=== PATIENT | female | born 1990 | race Caucasian/White ===

== ENCOUNTER 2017-07-10 11:15 | Emergency (ER) | payer MEDICAID ==
[~2017-07-10] VITALS: Ht 160 cm; Wt 54.5 kg
[~2017-07-10 11:15] MED LIST: ALPR-624 PO; DIPH-186 PO; HYDR-569 PO; NO HOME MEDS
[2017-07-10 12:06] LABS: BASOPHILS % (AUTO) 0.1 % (0-1); EOSINOPHILS % (AUTO) 0.1 % (0-6); HEMATOCRIT 46.3 % (35.0-45.0); LYMPHOCYTES # (AUTO) 1.9 X10'3 (1.1-4.8); LYMPHOCYTES % (AUTO) 21.2 % (21-51); MEAN CORPUSCULAR HEMOGLOBIN 26.9 PG (27.0-31.0); MEAN CORPUSCULAR HGB CONC 32.5 % (33.0-36.5); MEAN CORPUSCULAR VOLUME 82.9 FL (78-98); MONOCYTES # (AUTO) 0.7 X10'3 (0-0.9); MONOCYTES % (AUTO) 7.6 % (2-12); NEUTROPHILS # (AUTO) 6.2 X10'3 (1.8-7.7); PLATELET COUNT 347 X10'3 (140-440); RED BLOOD COUNT 5.59 X10'6 (4.20-5.60); WHITE BLOOD COUNT 8.8 X10'3 (4.5-11.0)
[2017-07-10 12:15] LABS: CLARITY,URINE CLOUDY (Clear); COLOR,URINE YELLOW (Yellow); GLUCOSE, URINE NEGATIVE (Neg); KETONES,URINE TRACE mg/dl (Neg); LEUKOCYTE ESTERASE ,URINE NEGATIVE (Neg); NITRITES, URINE NEGATIVE (Neg); OCCULT BLOOD,URINE NEGATIVE (Neg); PROTEIN,URINE 30 mg/dl (Neg); URINE HCG NEGATIVE (NEG)
[2017-07-10 12:17] LABS: UA COLLECTION TYPE CLN CATCH MIDSTREAM
[2017-07-10 12:20] LABS: MUCUS STRANDS MANY /LPF (Neg); SQUAMOUS EPITHELIAL CELL,UR MANY /LPF (FEW)
[2017-07-10 12:20] LABS: ALANINE AMINOTRANSFERASE 459 U/L (12-78); ALBUMIN 4.7 G/DL (3.4-5.0); ALKALINE PHOSPHATASE 184 IU/L (46-116); ANION GAP 11 (8-16); ASPARTATE AMINO TRANSFERASE 263 U/L (10-37); BILIRUBIN,TOTAL 1.1 MG/DL (0.1-1.0); BLOOD UREA NITROGEN 15 MG/DL (7-18); BUN/CREATININE RATIO 14.6 (6.6-38.0); CHLORIDE 102 MMOL/L (99-107); CREATININE 1.03 MG/DL (0.40-0.90); GLUCOSE 101 MG/DL (70-104); POTASSIUM 3.8 MMOL/L (3.5-5.1); SODIUM 141 MMOL/L (135-145); TOTAL CARBON DIOXIDE 27.9 MMOL/L (24-32); TOTAL PROTEIN 9.5 G/DL (6.4-8.2); eGFR 65 ML/MIN
[2017-07-10 12:21] LABS: BACTERIA,URINE 2+ /HPF (Neg); RBC,URINE 0-2 /HPF (0-2); WBC,URINE 0-4 /HPF (0-4)
[2017-07-10 12:26] LABS: URINE AMPHETAMINE SCREEN POSITIVE (Neg); URINE BARBITUATE SCREEN NEGATIVE (Neg); URINE BENZODIAZEPINES SCREEN NEGATIVE (Neg); URINE CANNABINOID SCREEN POSITIVE (Neg); URINE COCAINE SCREEN NEGATIVE (Neg); URINE METHADONE SCREEN NEGATIVE (Neg); URINE OPIATE SCREEN POSITIVE (Neg); URINE PHENCYCLIDINE SCREEN NEGATIVE (Neg)
[2017-07-10 12:31] LABS: ETHANOL < 0.010 GM/DL (0.0-0.010)
[2017-07-10 12:33] LABS: ACETAMINOPHEN < 2.0 UG/ML (10-30)
[2017-07-10] MEDS ORDERED: LORazepam 2 mg/ml vial IM ONE (14:35)
[2017-07-10] MEDS ORDERED: haloperidol lactate 5mg/ml inj IM ONE (14:35)
[2017-07-10] MEDS ORDERED: diphenhydrAMINE 50 mg/ml inj IM ONE (15:25)
[2017-07-12] MEDS ORDERED: hydrOXYzine 25 MG tablet PO ONE (06:40)
[2017-07-12 10:02] VITALS: BP 112/62
== END 2017-07-12 10:04 | disposition home or self-care (01) ==
LOC: ER 11:16
DX: F15.10 Other stimulant abuse, uncomplicated (principal); F29 Unspecified psychosis not due to a substance or known physiological condition; F11.10 Opioid abuse, uncomplicated; F41.9 Anxiety disorder, unspecified; R45.851 Suicidal ideations
CPT/HCPCS: 36415; 80053; 80305; 80320; 80329; 81001; 81025; 84443; 85025; 96372; 99284; J1200; J1630; J2060; Q0177

== ENCOUNTER 2017-09-05 18:23 | Emergency (ER) | payer MEDICAID ==
[~2017-09-05] VITALS: Ht 5200 cm; Wt 53.0 kg
[2017-09-05 19:05] LABS: URINE HCG NEGATIVE (NEG)
[2017-09-05 19:09] LABS: CLARITY,URINE Clear (Clear); COLOR,URINE Dark Yellow (Yellow); GLUCOSE, URINE Negative (Neg); KETONES,URINE Negative (Neg); LEUKOCYTE ESTERASE ,URINE Negative (Neg); NITRITES, URINE Negative (Neg); OCCULT BLOOD,URINE Negative (Neg); PH,URINE 5.5 (4.8-8.0); PROTEIN,URINE Trace mg/dl (Neg)
[2017-09-05 19:16] LABS: URINE AMPHETAMINE SCREEN POSITIVE (Neg); URINE BARBITUATE SCREEN NEGATIVE (Neg); URINE BENZODIAZEPINES SCREEN NEGATIVE (Neg); URINE CANNABINOID SCREEN POSITIVE (Neg); URINE COCAINE SCREEN NEGATIVE (Neg); URINE METHADONE SCREEN NEGATIVE (Neg); URINE OPIATE SCREEN POSITIVE (Neg); URINE PHENCYCLIDINE SCREEN NEGATIVE (Neg)
[2017-09-05] MEDS ORDERED: mupirocin 2% ointment 22GM TP STA (19:22)
[2017-09-05 19:25] LABS: UA COLLECTION TYPE CLN CATCH MIDSTREAM
[2017-09-05 19:32] LABS: BACTERIA,URINE FEW /HPF (Neg); MUCUS STRANDS FEW /LPF (Neg); RBC,URINE 0-2 /HPF (0-2); SQUAMOUS EPITHELIAL CELL,UR FEW /LPF (FEW); WBC,URINE 0-4 /HPF (0-4)
[2017-09-05 19:46] LABS: BASOPHILS % (AUTO) 0.2 % (0-1); EOSINOPHILS # (AUTO) 0.1 X10'3 (0-0.9); EOSINOPHILS % (AUTO) 0.7 % (0-6); HEMATOCRIT 36.7 % (35.0-45.0); HEMOGLOBIN 12.5 g/dl (12.0-16.0); LYMPHOCYTES # (AUTO) 2.8 X10'3 (1.1-4.8); LYMPHOCYTES % (AUTO) 35.8 % (21-51); MEAN CORPUSCULAR HEMOGLOBIN 27.9 PG (27.0-31.0); MEAN CORPUSCULAR HGB CONC 34.1 % (33.0-36.5); MEAN CORPUSCULAR VOLUME 81.6 FL (78-98); MEAN PLATELET VOLUME 7.8 FL (7.4-10.4); MONOCYTES # (AUTO) 0.7 X10'3 (0-0.9); MONOCYTES % (AUTO) 9.5 % (2-12); NEUTROPHILS # (AUTO) 4.3 X10'3 (1.8-7.7); NEUTROPHILS % (AUTO) 53.8 % (42-75); PLATELET COUNT 276 X10'3 (140-440); RED BLOOD COUNT 4.49 X10'6 (4.20-5.60); WHITE BLOOD COUNT 7.9 X10'3 (4.5-11.0)
[2017-09-05 20:12] LABS: ALANINE AMINOTRANSFERASE 186 U/L (12-78); ALBUMIN 3.5 G/DL (3.4-5.0); ALBUMIN/GLOBULIN RATIO 0.9 (1.1-1.5); ALKALINE PHOSPHATASE 94 IU/L (46-116); ANION GAP 6 (8-16); ASPARTATE AMINO TRANSFERASE 81 U/L (10-37); BILIRUBIN,TOTAL 0.3 MG/DL (0.1-1.0); BLOOD UREA NITROGEN 7 MG/DL (7-18); BUN/CREATININE RATIO 8.5 (6.6-38.0); CALCIUM 8.9 MG/DL (8.5-10.1); CHLORIDE 105 MMOL/L (99-107); CREATININE 0.82 MG/DL (0.40-0.90); ETHANOL < 0.010 GM/DL (0.0-0.010); GLUCOSE 100 MG/DL (70-104); POTASSIUM 3.9 MMOL/L (3.5-5.1); SODIUM 143 MMOL/L (135-145); TOTAL CARBON DIOXIDE 31.8 MMOL/L (24-32); TOTAL PROTEIN 7.6 G/DL (6.4-8.2); eGFR 85 ML/MIN
[2017-09-05] MEDS ORDERED: TETanus/Pertussis (Acell)/Diphther VAC/PF (Tdap-Adult) 0.5ml syringe IMVAC ONE (23:25)
[2017-09-06] MEDS ORDERED: HYDR-3686 PO (09:56)
[2017-09-06] MEDS ORDERED: GABA100C PO (09:56)
[2017-09-06] MEDS ORDERED: ZIPR20CA2 PO (09:56)
[2017-09-06] MEDS: gabapentin 100mg capsule PO SCH ×2 (13:00→21:58)
[2017-09-06] MEDS ORDERED: LORazepam 2 mg/ml vial ONE (13:11)
[2017-09-06] MEDS ORDERED: haloperidol lactate 5mg/ml inj IM ONE (13:11)
[2017-09-06] MEDS ORDERED: diphenhydrAMINE 50 mg/ml inj ONE (13:11)
[2017-09-06] MEDS ORDERED: ondansetron 4mg rapidly disintigrating tab PO ONE (16:50)
[2017-09-06] MEDS ORDERED: diphenhydrAMINE 25mg capsule PO ONE (16:50)
[2017-09-06] MEDS: ziprasidone 20mg capsule PO SCH (21:59)
[2017-09-06] MEDS: hydrOXYzine 25 MG tablet PO PRN (21:59)
[2017-09-07] MEDS: gabapentin 100mg capsule PO SCH ×3 (07:37→21:01)
[2017-09-07] MEDS: ziprasidone 20mg capsule PO SCH ×2 (07:37→21:01)
[2017-09-07] MEDS: hydrOXYzine 25 MG tablet PO PRN (21:01)
[2017-09-08] MEDS: ziprasidone 20mg capsule PO SCH (08:17)
[2017-09-08] MEDS: gabapentin 100mg capsule PO SCH (08:17)
[2017-09-08 11:25] VITALS: BP 97/64
== END 2017-09-08 09:50 ==
LOC: ER 18:25
DX: R45.851 Suicidal ideations (principal); L03.011 Cellulitis of right finger; F15.10 Other stimulant abuse, uncomplicated; F11.10 Opioid abuse, uncomplicated; F41.9 Anxiety disorder, unspecified; Z90.89 Acquired absence of other organs; Z98.890 Other specified postprocedural states; Z59.0 Homelessness
CPT/HCPCS: 36415; 80053; 80305; 80320; 81001; 81025; 84443; 85025; 90471; 96372; 99285; J1200; J1630; J2060; Q0163; Q0177

== ENCOUNTER 2018-07-22 19:14 | Emergency (ER) | payer MEDICAID ==
[~2018-07-22] VITALS: Ht 152.4 cm; Wt 54.5 kg
[~2018-07-22 19:14] MED LIST changes: -ALPR-624 PO; -DIPH-186 PO; +GABA100C PO; +HYDR-3686 PO; -HYDR-569 PO; -NO HOME MEDS; +ZIPR20CA2 PO
[2018-07-22] MEDS ORDERED: naloxone 0.4 mg/ml inj IV ONE (19:55)
[2018-07-22] MEDS: naloxone 2mg/2ml inj IH STA ×2 (19:59→20:07)
--- NOTE | 2018-07-22 20:37 | NUR ---
pt is up talking and refusing narcan. riley fried notified, no further orders at this time.
[2018-07-22 21:04] VITALS: BP 111/72
--- NOTE | 2018-07-22 21:43 | NUR ---
PT AWAKE AND STANDING AT SIDE OF THE GURNEY , ATTACHED TO THE MONITOR AND REQUESTING TO BE UNHOOKED TO GO TO BR. PT WITH STEADY SLOW GAIT TO BR.
[2018-07-22] MEDS ORDERED: NALO4SPR (22:08)
== END 2018-07-22 22:38 | disposition home or self-care (01) ==
LOC: ER 19:14
DX: F11.10 Opioid abuse, uncomplicated (principal); F15.90 Other stimulant use, unspecified, uncomplicated; Z90.89 Acquired absence of other organs; Z59.0 Homelessness; Z98.890 Other specified postprocedural states; Z79.899 Other long term (current) drug therapy
CPT/HCPCS: 99284; J2310

== ENCOUNTER 2018-12-20 10:41 | Emergency (ER) | payer MEDICAID ==
[~2018-12-20] VITALS: Ht 152.4 cm; Wt 53.0 kg
[~2018-12-20 10:41] MED LIST changes: +NALO4SPR
--- NOTE | 2018-12-20 11:13 | NUR ---
PA wants patient monitored for an undertermined amount of time due to patient taking heroin. Patient sitter will come from overflow to sit with her.
[2018-12-20 12:05] LABS: URINE HCG NEGATIVE (NEG)
[2018-12-20 12:17] LABS: URINE AMPHETAMINE SCREEN POSITIVE (Neg); URINE BARBITUATE SCREEN NEGATIVE (Neg); URINE BENZODIAZEPINES SCREEN NEGATIVE (Neg); URINE CANNABINOID SCREEN POSITIVE (Neg); URINE COCAINE SCREEN NEGATIVE (Neg); URINE METHADONE SCREEN NEGATIVE (Neg); URINE OPIATE SCREEN POSITIVE (Neg); URINE PHENCYCLIDINE SCREEN NEGATIVE (Neg)
[2018-12-20 12:41] LABS: BASOPHILS % (AUTO) 0.3 % (0-1); EOSINOPHILS % (AUTO) 0.4 % (0-6); HEMATOCRIT 35.1 % (35.0-45.0); LYMPHOCYTES # (AUTO) 2.5 X10'3 (1.1-4.8); LYMPHOCYTES % (AUTO) 32.2 % (21-51); MEAN CORPUSCULAR HEMOGLOBIN 28.8 PG (27.0-31.0); MEAN CORPUSCULAR HGB CONC 34.3 g/dL (33.0-36.5); MEAN CORPUSCULAR VOLUME 84.1 FL (78-98); MEAN PLATELET VOLUME 8.5 FL (7.4-10.4); MONOCYTES # (AUTO) 0.7 X10'3 (0-0.9); MONOCYTES % (AUTO) 9.4 % (2-12); NEUTROPHILS # (AUTO) 4.5 X10'3 (1.8-7.7); NEUTROPHILS % (AUTO) 57.7 % (42-75); PLATELET COUNT 216 X10'3 (140-440); RED BLOOD COUNT 4.17 X10'6 (4.20-5.60); WHITE BLOOD COUNT 7.8 X10'3 (4.5-11.0)
[2018-12-20 12:57] LABS: ALANINE AMINOTRANSFERASE 81 U/L (12-78); ALBUMIN 3.8 G/DL (3.4-5.0); ALKALINE PHOSPHATASE 72 IU/L (46-116); ANION GAP 6 (8-16); ASPARTATE AMINO TRANSFERASE 58 U/L (10-37); BILIRUBIN,TOTAL 0.5 MG/DL (0.1-1.0); BLOOD UREA NITROGEN 9 MG/DL (7-18); CALCIUM 8.7 MG/DL (8.5-10.1); CHLORIDE 104 MMOL/L (99-107); GLUCOSE 90 MG/DL (70-104); POTASSIUM 4.1 MMOL/L (3.5-5.1); SODIUM 139 MMOL/L (135-145); TOTAL CARBON DIOXIDE 28.7 MMOL/L (24-32); TOTAL PROTEIN 7.5 G/DL (6.4-8.2); eGFR 76 ML/MIN
[2018-12-20 12:58] LABS: ETHANOL < 0.010 GM/DL (0.0-0.010)
--- NOTE | 2018-12-20 13:09 | NUR ---
1115-Patient back to bed 16 with joseluis Ellsworth at bedside.
--- NOTE | 2018-12-20 14:37 | NUR ---
Nursing Note: pt in bed #21 in ER Overflow. Sitting up in bed eating lunch. Pt appears sedated and unsteady. She is weaving forward and backwards as she leans forward in bed. She has PIV in R forearm. Will continue to monitor.
--- NOTE | 2018-12-20 15:28 | NUR ---
Nursing Note: Pt falling asleep while trying to eat her lunch. Encouraged pt to lay back in bed. No S&S of distress, will continue to monitor.
--- NOTE | 2018-12-20 16:27 | NUR ---
IVON COULTER BRINGING PATIENT TO ROOM 8 FOR INTRANASAL NARCAN PER VIMAL FAY
--- NOTE | 2018-12-20 16:28 | NUR ---
Nursing Note: Notified VIMAL Cintron that pt's respirations were 8-9 with respiratory pauses. BP 95/45, O2 98%, HR 64. Will continue to monitor.
[2018-12-20] MEDS ORDERED: naloxone 0.4 mg/ml inj IV ONE (17:00)
[2018-12-20] MEDS ORDERED: normal saline 1000ml 1,000 ML IV ONE (17:15)
[2018-12-20] MEDS ORDERED: naloxone 2mg/2ml inj IV ONE (18:05)
--- NOTE | 2018-12-20 18:35 | NUR ---
RR INCREASED TO 16 AFTER 1MG NARCAN GIVEN IV, PATIENT ATE A FEW BITES OF FOOD AND THEN WANTED TO LAY DOWWN
--- NOTE | 2018-12-20 19:03 | NUR ---
SBAR TO YAW RN, PT MOVED TO OVERFLOW BED 21.
--- NOTE | 2018-12-20 19:19 | NUR ---
This patient is brought back from the main ER. The patient awakens during transfer between [facility]. She immediately returns to sleep. She is non verbal at this time. SaO2 os 98 percent on room air. Her respiratory rate is 14, she has good tidal volume. NSR with no ectopy, rate of 70. B/P is 103/67. Plan: To monitor patient closely for any vital sign changes. Allow to sleep. Q15 minute rounding. Patient is low fowlers position in bed. Warm blankets provided. Three rails up, bed in low position. Bed is locked.
--- NOTE | 2018-12-20 20:10 | NUR ---
Packet faxed to [facility]. Confirmed receipt of packet with Gene at [facility] office.
--- NOTE | 2018-12-20 23:55 | NUR ---
This patient awoke a short time ago. She ambulated to the bathroom, her gait was normal. The patient now talks in a normal tone. She states she remembers this newspaper writer from a previous mental health visit. Her thought process is becoming linear. Patient returns to sleep.
--- NOTE | 2018-12-21 04:15 | NUR ---
This patient remains sleeping quietly.
[2018-12-21 05:49] VITALS: BP 95/55
== END 2018-12-21 12:06 | disposition home or self-care (01) ==
LOC: ER 10:41
DX: T40.1X1A Poisoning by heroin, accidental (unintentional), initial encounter (principal); T43.621A Poisoning by amphetamines, accidental (unintentional), initial encounter; S41.132A Puncture wound without foreign body of left upper arm, initial encounter; S10.93XA Contusion of unspecified part of neck, initial encounter; R45.851 Suicidal ideations; F41.9 Anxiety disorder, unspecified; F12.90 Cannabis use, unspecified, uncomplicated; F19.90 Other psychoactive substance use, unspecified, uncomplicated; Z98.890 Other specified postprocedural states; Z59.0 Homelessness; Z79.899 Other long term (current) drug therapy; X58.XXXA Exposure to other specified factors, initial encounter; Y93.89 Activity, other specified; Y99.8 Other external cause status; Y92.89 Other specified places as the place of occurrence of the external cause
CPT/HCPCS: 36415; 80053; 80305; 80320; 81025; 85025; 93005; 96374; 96376; 99284; J2310; J7030

== ENCOUNTER 2019-09-08 20:31 | Emergency (ER) | payer MEDICAID ==
[~2019-09-08] VITALS: Ht 152.4 cm; Wt 54.5 kg
[2019-09-08 21:24] LABS: URINE HCG NEGATIVE (NEG)
[2019-09-08 21:38] VITALS: BP 120/69
== END 2019-09-08 21:40 ==
LOC: ER 20:31
DX: F11.90 Opioid use, unspecified, uncomplicated (principal); F41.9 Anxiety disorder, unspecified; F12.90 Cannabis use, unspecified, uncomplicated; F15.90 Other stimulant use, unspecified, uncomplicated; F19.90 Other psychoactive substance use, unspecified, uncomplicated; Z98.890 Other specified postprocedural states; Z59.0 Homelessness; Z79.899 Other long term (current) drug therapy
CPT/HCPCS: 81025; 99283